=== PATIENT | female | born 1990 | race Caucasian/White ===

== ENCOUNTER 2018-04-26 19:17 | Emergency (ER) | payer MEDICAID, OTHER ==
[~2018-04-26] VITALS: Ht 165.1 cm; Wt 90.7 kg
[~2018-04-26 19:17] MED LIST: ACHD5005 PO; ACHYD1T PO; CLIN-62 PO; Ibuprofen PO; OMEP20TA2 PO; OSLT75CRX PO; PREN1TAB39 PO; SERT50TA PO
--- OUTSIDE RECORDS SUMMARY | 2018-04-26 19:22 | XMS REPORT | Continuity of Care Document ---
Demographics Preferred Language Unknown Marital Status Unknown Moravian Affiliation Unknown Race Unknown Ethnic Group Unknown Author Author [facility] Address Unknown Phone Unavailable Allergies Active Description Code Type Severity Reaction Onset Reported/Identified Relationship to Patient Clinical Status Yes No Known Drug Allergies [id number] Drug Allergy Unknown N/A 07/01/2010 Medications There is no data. 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 Results There is no data. Encounters ACCT No. Visit Date/Time Discharge Status Pt. Type Provider Facility Loc./Unit Complaint [id number] 02/13/2011 10:35:00 02/13/2011 23:59:59 CLS Outpatient [id number] 03/06/2014 11:48:13 ACT Document Registration [id number] 11/20/2016 12:50:00 11/20/2016 23:59:59 CLS Outpatient [facility] [id number] 03/06/2014 11:47:00 03/06/2014 14:30:00 DIS Emergency RAISA GARCÍA [facility] [id number] 08/05/2013 06:30:00 08/06/2013 15:15:00 DIS Inpatient [id number] 05/18/2013 14:13:00 05/18/2013 23:59:59 CLS Outpatient [id number] 05/16/2013 05:23:00 05/16/2013 07:11:00 DIS Emergency
[2018-04-26] MEDS ORDERED: HYDROcodone/APAP 5 MG/325 MG (LORTAB) TAB PO ONE (20:30)
--- NOTE | 2018-04-26 20:31 | ED Lower Extremity ---
General Chief Complaint: Lower Extremity Stated Complaint: FALL/L KNEE INJ Nursing Triage Note: PATIENT STATES THAT SHE WAS IN THE GARAGE TAKING LAUNDRY OUT AND HER LEFT KNEE "GAVE OUT" AND SHE FELL AGAINST THE CAR. SHE ALSO STATES THAT SHE HAD A PREVIOUS INJURY A CHILD ON THAT KNEE, BUT DENIES ANY SCOPES OR OTHER SURGERIES ON IT. ALSO STATES THAT HER RIGHT LOWER BACK IS SORE FROM HITTING AGAINST THE CAR IN THE GARAGE TO CATCH HERSELF. Nursing Sepsis Screen: No Definite Risk Source: patient Exam Limitations: no limitations History of Present Illness Date Seen by Provider: Apr 26, 2018 Time Seen by Provider: 20:28 Initial Comments To ER per private vehicle with reports of left anterior knee pain. She was taking laundry out into the garage when her left knee "gave out". She fell against the car but did not hit the ground. No history of prior injury or surgery to the knee. Onset: this evening Severity: moderate Pain/Injury Location: left knee Method of Injury: other (knee gave out) Modifying Factors: Worse With Movement Allergies and Home Medications Allergies Coded Allergies: No Known Drug Allergies (Unverified , 07/01/10) Home Medications Hydrocodone Bit/Acetaminophen 1 Ea Tab, 1-2 EA PO Q4H PRN for PAIN Prescribed by: AGUILAR FORD on 08/06/13 1321 Omeprazole 20 Mg Tablet.dr, 20 MG PO DAILY Prescribed by: ROBERT ENGLAND on 08/05/13 1048 Oseltamivir Phosphate 75 Mg Cap, 75 MG PO BID Prescribed by: RAISA SUTHERLAND on 03/06/14 1406 [Ibuprofen] 600 MG TAB, 600 MG PO Q6H Prescribed by: AGUILAR FORD on 08/06/13 1321 Patient Home Medication List Home Medication List Reviewed: Yes Review of Systems Constitutional: see HPI EENTM: see HPI Respiratory: no symptoms reported Cardiovascular: no symptoms reported Genitourinary: no symptoms reported Musculoskeletal: see HPI Skin: no symptoms reported Psychiatric/Neurological: No Symptoms Reported Past Theohss-Lchjup-Kgdsan Hx Patient Social History Recent Foreign Travel: No Contact w/Someone Who Travel: No Recent Infectious Disease Expo: No Immunizations Up To Date Tetanus Booster (TDap): Unknown PED Vaccines UTD: Yes Seasonal Allergies Seasonal Allergies: No Past Medical History Reproductive Disorders: No Sexually Transmitted Disease: No HIV/AIDS: No Fractures Anxiety, Depression Adverse Reaction/Blood Tranf: No Family Medical History Family history: Hypertension 19 MOTHER Physical Exam Vital Signs Vital Signs - First Documented 04/26/18 20:05 Temp 98.5 Pulse 74 Resp 16 B/P (MAP) 124/74 (91) Pulse Ox 99 O2 Delivery Room Air Capillary Refill : Less Than 3 Seconds Height, Weight, BMI Height: 5'5.00" Weight: 200lbs. oz. 90.795418on; BMI Method:Stated General Appearance: WD/WN, no apparent distress HEENT: PERRL/EOMI, normal ENT inspection Respiratory: no respiratory distress, no accessory muscle use Hips: bilateral hip non-tender, bilateral hip normal inspection, bilateral hip normal range of motion Legs: bilateral leg non-tender, bilateral leg normal inspection, bilateral leg normal range of motion Knees: left knee pain, left knee soft tissue tenderness Ankles: bilateral ankle non-tender, bilateral ankle normal inspection, bilateral ankle normal range of motion Feet: bilateral foot non-tender, bilateral foot normal inspection, bilateral foot normal range of motion Neurologic/Psychiatric: alert, normal mood/affect, oriented x 3 Skin: normal color, warm/dry Progress/Results/Core Measures Results/Orders My Orders Orders - PALAK PERLA APRN Knee, Left, 3 Views (04/26/18 20:25) Hydrocodone/Apap 5/325 Tablet (Lortab 5 (04/26/18 20:30) Vital Signs/I&O 04/26/18 20:05 Temp 98.5 Pulse 74 Resp 16 B/P (MAP) 124/74 (91) Pulse Ox 99 O2 Delivery Room Air Blood Pressure Mean: 91 Departure Impression Primary Impression: Internal derangement of left knee Disposition: 01 HOME, SELF-CARE Condition: Stable Departure-Patient Inst. Decision time for Depature: 20:30 Referrals: AGUILAR FORD MD (PCP/Family) Primary Care Physician Patient Instructions: Internal Derangement of the Knee Add. Discharge Instructions: 1. Knee immobilizer at all times when you're upright, follow-up with your regular doctor later this week. Pain persists or she may wish to order an MRI to further evaluate the meniscus and ligaments of the knee. All discharge instructions reviewed with patient and/or family. Voiced understanding. Work/School Note: Work Release Form Date Seen in the Emergency Department: Apr 26, 2018 Return to Work: Apr 28, 2018 PALAK PERLA APRN Apr 26, 2018 20:31
--- NOTE | 2018-04-26 20:52 | Diagnostic Imaging Report ---
INDICATION: Twisting injury with pain FINDINGS: No fracture, dislocation, or opaque loose body. The articular surface is smooth. The joint space is maintained. IMPRESSION: No acute appearing abnormality. Dictated by: Dictated on workstation # [id number]
[2018-04-26] MEDS ORDERED: RX-HYDROCODONE/APAP 5/325 MG #4 TAB PK PO PRN (21:00)
[2018-04-26 21:10] VITALS: BP 148/64
== END 2018-04-26 21:12 | disposition home or self-care (01) ==
LOC: EDUNIT# 19:17 → ER 19:18
DX: M23.91 Unspecified internal derangement of right knee (principal); F41.9 Anxiety disorder, unspecified; F32.9 Major depressive disorder, single episode, unspecified; W18.30XA Fall on same level, unspecified, initial encounter; Y92.59 Other trade areas as the place of occurrence of the external cause
CPT/HCPCS: 73562

== ENCOUNTER 2018-08-20 16:33 | Emergency (ER) | payer OTHER ==
[~2018-08-20] VITALS: Ht 165.1 cm; Wt 86.2 kg
--- NOTE | 2018-08-20 16:59 | ED Upper Extremity ---
General Chief Complaint: Upper Extremity Stated Complaint: LEFT WRIST INJ Nursing Triage Note: PT AMBULATES TO ER WITH COMPLAINTS OF LEFT WRIST PAIN. PT STATES THAT SHE WAS LIFTING A PALLET AT WORK AND STRAINED IT. 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 She had a sudden pain in the volar aspect radial side of the wrist. Onset: just prior to arrival Severity: moderate Pain/Injury Location: left wrist Method of Injury: unknown Modifying Factors: Worse With Movement Allergies and Home Medications Allergies Coded Allergies: No Known Drug Allergies (Unverified , 07/01/10) Home Medications Hydrocodone Bit/Acetaminophen 1 Ea Tab, 1-2 EA PO Q4H PRN for PAIN Prescribed by: AGUILAR FORD on 08/06/13 1321 Omeprazole 20 Mg Tablet.dr, 20 MG PO DAILY Prescribed by: ROBERT ENGLAND on 08/05/13 1048 Oseltamivir Phosphate 75 Mg Cap, 75 MG PO BID Prescribed by: RAISA SUTHERLAND on 03/06/14 1406 [Ibuprofen] 600 MG TAB, 600 MG PO Q6H Prescribed by: AGUILAR FORD on 08/06/13 1321 Patient Home Medication List Home Medication List Reviewed: Yes Review of Systems Constitutional: see HPI EENTM: see HPI Respiratory: no symptoms reported Cardiovascular: no symptoms reported Genitourinary: no symptoms reported Musculoskeletal: see HPI Skin: no symptoms reported Psychiatric/Neurological: No Symptoms Reported (no) Past Izyadqd-Typiqd-Ovgape Hx Patient Social History Recent Foreign Travel: No Contact w/Someone Who Travel: No Recent Infectious Disease Expo: No Recent Hopitalizations: No Immunizations Up To Date Tetanus Booster (TDap): Unknown PED Vaccines UTD: Yes Seasonal Allergies Seasonal Allergies: No Past Medical History Surgeries: No Respiratory: No Cardiac: No Neurological: No : No Reproductive Disorders: No Sexually Transmitted Disease: No HIV/AIDS: No Genitourinary: No Gastrointestinal: No Musculoskeletal: Yes (15 y/o) Fractures Endocrine: No HEENT: No Cancer: No Psychosocial: Yes Anxiety, Depression Integumentary: No Blood Disorders: No Adverse Reaction/Blood Tranf: No Family Medical History Family history: Hypertension 19 MOTHER Physical Exam Vital Signs Vital Signs - First Documented 08/20/18 16:40 Temp 98.9 Pulse 78 Resp 18 B/P (MAP) 137/93 (108) Pulse Ox 99 O2 Delivery Room Air Capillary Refill : Less Than 3 Seconds Height, Weight, BMI Height: 5'5.00" Weight: 190lbs. oz. 86.983975ik; BMI Method:Stated General Appearance: WD/WN, no apparent distress HEENT: PERRL/EOMI, normal ENT inspection Neck: non-tender, full range of motion Respiratory: no respiratory distress, no accessory muscle use Gastrointestinal: normal bowel sounds, soft Elbow/Forearm: normal inspection, non-tender Wrist: Yes normal inspection, Yes soft tissue tenderness (tenderness to the volar aspect over the flexor carpi radialis tendon with limited adduction of thumb against the little finger and flexion of the wrist as a hold due to pain. No paresthesias or tingling) Hand: normal inspection, non-tender Neurologic/Tendon: normal sensation, normal motor functions Neurologic/Psychiatric: alert, normal mood/affect, oriented x 3 Progress/Results/Core Measures Results/Orders Vital Signs/I&O 08/20/18 16:40 Temp 98.9 Pulse 78 Resp 18 B/P (MAP) 137/93 (108) Pulse Ox 99 O2 Delivery Room Air Blood Pressure Mean: 108 Departure Impression Primary Impression: flexor carpi radialis strain Disposition: 01 HOME, SELF-CARE Condition: Stable Departure-Patient Inst. Decision time for Depature: 16:58 Referrals: AGUILAR FORD MD (PCP/Family) Primary Care Physician Patient Instructions: Wrist Sprain (DC) Add. Discharge Instructions: 1. Wear the splint for the next 4 days, you may remove this on Friday if the pain is completely gone only. You may return to work full duty no restrictions on Friday only if the pain is completely gone. All discharge instructions reviewed with patient and/or family. Voiced understanding. PALAK PERLA APRN Aug 20, 2018 16:59
[2018-08-20 17:12] VITALS: BP 137/93
== END 2018-08-20 17:14 | disposition home or self-care (01) ==
LOC: EDUNIT# 16:33 → ER 16:34
DX: S56.212A Strain of other flexor muscle, fascia and tendon at forearm level, left arm, initial encounter (principal); F41.9 Anxiety disorder, unspecified; F32.9 Major depressive disorder, single episode, unspecified; Z82.49 Family history of ischemic heart disease and other diseases of the circulatory system; X50.0XXA Overexertion from strenuous movement or load, initial encounter; Y92.59 Other trade areas as the place of occurrence of the external cause; Y99.0 Civilian activity done for income or pay
CPT/HCPCS: 99282

== ENCOUNTER 2019-08-22 10:44 | Emergency (ER) | payer BC, OTHER ==
[~2019-08-22] VITALS: Ht 167 cm; Wt 100.0 kg
--- OUTSIDE RECORDS SUMMARY | 2019-08-22 10:49 | XMS REPORT ---
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 Name Role Phone AGUILAR FORD Unavailable AGUILAR FORD MD Unavailable Unavailable MARVIN DUARTE MD Unavailable Unavailable RAISA GARCÍA Unavailable Unavailable PALAK PERLA APRN Unavailable Unavailable AGUILAR FORD MD Unavailable Unavailable Unavailable Unavailable Allergies Normalized Allergy Reported Date of Reaction(s) Care Provider Facility Allergy Type classification allergen Allergy Onset DA (21 Unclassified No Known Drug 07-01-2010 - no information MARVIN Not Available sources.) Allergies MD FELICIA (15780) Medications Medication Ingredient Drug Dose Dates Status Sig Sig Care Class(es) (Normalized) (Original) Provid er no Acetaminoph no 05-17-19 Complete no Acetaminophe Timoth information en/Hydrocod information 14 - d information n/ Hydrocodon y D (1 source.) one Bitart 08-06-19 e Bitart Stebbi (Lortab 5 14 (Lortab 5 Mg ns (no Mg Tablet) Tablet) 1 phone) 1 Each Each Tablet, Tablet, 1-2 1-2 Each Each Oral Oral Every 6 Hours as needed for Pain 05/16/13 Discontinued no no 08-06-19 Complete no (no information Vits information 14 d information Vits phone) (1 source.) W-Ca,Fe,Fa( W-Ca,Fe,Fa( <1MG) Daily () Discontinued 1 Each Tablet, 1 Each Oral Problems Active Problems Problem Normalized Date Last Normalized Normalized Provider Fa cility Classification Problem(s) Recorded Problem Problem Sta tus Duration Anxiety Anxiety Chronic Active PALAK PERLA Not Availab le disorders (9 disorder, (30191) sources.) unspecified Malposition; Breech Episodic Active AGUILAR FORD , Not A vailable malpresentatio presentation (01264) n (4 sources.) without mention of version, antepartum condition or complication Skin and Cellulitis and Episodic Active MARVIN Not Dee ilable subcutaneous abscess of MD FELICIA (80402) tissue trunk infections (8 sources.) Other Encounter for Episodic Active AGUILAR FORD , Not Available screening for anatomic MD (56658) suspected survey conditions (not mental disorders or infectious disease) (4 sources.) Residual Family history Episodic Active PALAK PERLA [facility] V ia codes; of ischemic [facility] unclassified heart disease Hospital - (1 source.) and other [place] diseases of (72361) the circulatory system Adverse Fever, Episodic Active RAISA Not Available effects of unspecified JODY SUTHERLAND (28801) medical drugs (4 sources.) Immunizations Need for Episodic Active AGUILAR FORD , Not Available and screening prophylactic MD (77690) for infectious vaccination disease (4 and sources.) inoculation against diphtheria-tet anus-pertussis , combined [DTP] [DTaP] Other Normal Episodic Active AGUILAR FORD , Not Avai lable and delivery (33856) delivery Translations: including [ normal (8 DELIVER-SINGLE sources.) LIVEBORN, DELIVER-SINGLE LIVEBORN] Other Pain in left Episodic Active PALAK PERLA Not Dee ilable non-traumatic knee (92439) joint disorders (8 sources.) Other Pain in left Episodic Active PALAK PERLA [facility] Via non-traumatic wrist [facility] joint Hospital - disorders (1 [place] source.) (71240) Sprains and Strain of Episodic Active PALAK PERLA [facility] Via strains (1 other flexor [facility] source.) muscle, fascia Hospital - and tendon at [place] forearm level, (67507) left arm, initial encounter Joint Unspecified Chronic Active PALAK PERLA Not Avai lable disorders and internal (33967) dislocations; derangement of trauma-related right knee (8 sources.) Past or Other Problems Problem Normalized Date Last Normalized Normalized Provider Fa cility Classification Problem(s) Recorded Problem Problem Sta tus Duration External cause Civilian no information no information PALAK MADDEN [facility] Via codes: activity done [facility] Unspecified (1 for income or Hospital - source.) pay [place] (37748) External cause Fall on same no information no information PALAK PERLA Not Available codes: Fall (8 level, (79788) sources.) unspecified, initial encounter Mood disorders Major no information no information PALAK MADDEN Not Available (9 sources.) depressive (59931) disorder, single episode, unspecified External cause Other trade no information no information PALAK PERLA Not Available codes: Place areas as the (24756) of occurrence place of (9 sources.) occurrence of the external cause External cause Overexertion no information no information PALAK PERLA [facility] Via codes: from strenuous [facility] Natural/enviro movement or Hospital - nment (1 load, initial [place] source.) encounter (56445) Unclassified no information no information no information CLAUDIA FORD [place] Via (1 source.) [address] [facility] (05566) Procedures Procedure Normalized Procedure Procedure Result Performer Facility Date Other manually no information no name Not Available ( 93121) assisted delivery 04-26-2018 X-ray of left knee no information PALAK GRANADOS S [place] [facility] (01335) Immunizations Normalized Immunization Date Notes Care Provider Facili ty Immunization vaccine no information AGUILAR FORD [address] [place] [facility] Translations: [ [facility] vaccine] (31527) Results The data below is from unstructured sourcesNo known relevant diagnostic tests, laboratory data and/or discharge summary.No relevant diagnostic test, laboratory data and/or discharge summary information a vailable.No relevant diagnostic test, laboratory data and/or discharge summary i nformation available. Vital Signs The data below is from unstructured sources Vital Response Date/Time Temperature (Fahrenheit) 100.2 degre es F (97.6 - 99.5) Temperature (Calculated Celsius) 37. 15558 degrees C (36.4 - 37.5) Temperature Source Tympanic Pulse Rate (adult) 116 bpm (60 - 90) Respiratory Rate 20 bpm (12 - 24) O2 Sat by Pulse Oximetry 95 % (88 - 100) Pain Pain Intensity 0 Height (Feet) 5 feet Height (Inches) 5 inches Height (Calculated Centimeters) 165. 278097 cm Weight (Pounds) 190 pounds Weight (Calculated Kilograms) 86.182 551 kilograms Calculated BMI 31.61 Vital Response Date/Time Temperature (Fahrenheit) 98.5 degree s F (97.6 - 99.5) 04/26/2018 8:05pm Temperature (Calculated Celsius) 36. 74319 degrees C (36.4 - 37.5) 04/26/2018 8:05pm Temperature Source Oral 04/26/2018 8:05pm Pulse Rate (adult) 74 bpm (60 - 90) 04/26/2018 8:05pm Respiratory Rate 16 bpm (12 - 24) 04/26/2018 8:05pm O2 Sat by Pulse Oximetry 99 % (88 - 100) 04/26/2018 8:05pm Blood Pressure 124/74 mm Hg 04/26/2018 8:05pm Blood Pressure Mean 91 mm Hg (65 - 110) 04/26/2018 8:05pm Pain Numeric Pain Scale 7 8:31pm Height (Feet) 5 feet 04/2018 8:05pm Height (Inches) 5.00 inches 04/26/2018 8:05pm Height (Calculated Centimeters) 165. 492023 cm 04/26/2018 8:05pm Height Method Stated 04/2018 8:05pm Weight (Pounds) 200 pounds 04/26/2018 8:05pm Weight (Calculated Grams) 83393.48 gm 04/26/2018 8:05pm Weight (Calculated Kilograms) 90.718 475 kilograms 04/26/2018 8:05pm Weight Method Stated 04/2018 8:05pm Capillary Refill Capillary Refill Less Than 3 Seconds 04/26/2018 8:05pm Height 5 ft 5 in 019 8:05pm Weight 200 lb 04/26/2018 8:05pm Body Mass Index 33.3 kg/m^2 04/26/2018 8:05pm Vital Response Date/Time Temperature (Fahrenheit) 98.5 degree s F (97.6 - 99.5) 04/26/2018 8:05pm Temperature (Calculated Celsius) 36. 13172 degrees C (36.4 - 37.5) 04/26/2018 8:05pm Temperature Source Oral 04/26/2018 8:05pm Pulse Rate (adult) 74 bpm (60 - 90) 04/26/2018 8:05pm Respiratory Rate 16 bpm (12 - 24) 04/26/2018 8:05pm O2 Sat by Pulse Oximetry 99 % (88 - 100) 04/26/2018 8:05pm Blood Pressure 124/74 mm Hg 04/26/2018 8:05pm Blood Pressure Mean 91 mm Hg (65 - 110) 04/26/2018 8:05pm Pain Numeric Pain Scale 7 8:31pm Height (Feet) 5 feet 04/2018 8:05pm Height (Inches) 5.00 inches 04/26/2018 8:05pm Height (Calculated Centimeters) 165. 806589 cm 04/26/2018 8:05pm Height Method Stated 04/2018 8:05pm Weight (Pounds) 200 pounds 04/26/2018 8:05pm Weight (Calculated Grams) 12289.48 gm 04/26/2018 8:05pm Weight (Calculated Kilograms) 90.718 475 kilograms 04/26/2018 8:05pm Weight Method Stated 04/2018 8:05pm Capillary Refill Capillary Refill Less Than 3 Seconds 04/26/2018 8:05pm Height 5 ft 5 in 019 8:05pm Weight 200 lb 04/26/2018 8:05pm Body Mass Index 33.3 kg/m^2 04/26/2018 8:05pm Interventions No Information Plan of Treatment The data below is from unstructured sources Discharge Date 04/26/18 9:12pm Disposition 01 HOME, SELF-CARE Condition at Discharge Stable Instructions/Education Provided Inte rnal Derangement of the Knee Forms Provided Work Release Form Prescriptions See Medication Section Referrals AGUILAR FORD MD Order Date: Primary Care Physician Address: [address] [place] [address], [facility] [address] [place] [address] [phone] Additional Instructions/Education 1. Knee immobilizer at all times when you're upright, follow-up with your regular doctor later this week. Pain persists or she may wish to order an MRI to further evaluate the meniscus and ligaments of the knee. All discharge instructions reviewed with patient and/or family. Voiced understanding. Goals No Information Social History No Information Functional Status The data below is from unstructured sourcesNo functional status results.No functional status information available.No functional status information available. Mental Status No Information Encounters Encounter Normalized Encounter Encounter Diagnosis Care Provi jakob Organization Date Type 08-20-2018 Emergency department no information no name no organization name - patient visit 08-20-2018 04-26-2018 Emergency department no information PALAK Aguilar APRN [facility] no organization name - patient visit Work Phone: 04-26-2018 05-16-2013 Emergency department no information no name no organization name - patient visit 05-16-2013 08-05-2013 Evaluation and no information no name no organ ization name - management of 08-06-2013 inpatient 08-20-2018 Patient encounter no information no name no or ganization name procedure 04-26-2018 Patient encounter no information no name no or ganization name procedure 05-18-2013 Patient encounter no information no name no or ganization name procedure Medical Equipment No Information Payers No Information Advance Directives Directive Response Recor ded Date/Time Advance Directives No 12:53pm Health Care Power of Dry Cell And Battery Assembler No 03/06/14 12:53pm Organ Donor Yes 03/06/14 12:53pm Resuscitation Status Full Code 03/06/14 12:53pm Directive Response Recor ded Date/Time Advance Directives No 12:53pm Health Care Power of Dry Cell And Battery Assembler No 03/06/14 12:53pm Organ Donor Yes 03/06/14 12:53pm Discharge Instructions No hospital discharge instructions.No hospital discharge instruction information available. Chief Complaint and Reason for Visit Chief Complaint Lower Extremity Reason for Visit Internal derangemen t of left knee Additional Source Comments This clinical document has been generated using [employer] software that has been certified by the Office of the National Coordinator for Health Information Technology (ONC 15.99.04.3023.Diam.31.00.0.840414) and the National Committee for Recreation Superintendent (NCQA, as an eMeasure certified technology). FOR RECORDS PERTAINING TO PATIENTS WHO ARE OR HAVE BEEN ENROLLED IN A CHEMICAL D EPENDENCY/SUBSTANCE ABUSE PROGRAM, SOME INFORMATION MAY BE OMITTED. This clinica l summary was aggregated from multiple sources. Caution should be exercised in using it in the provision of clinical care. This summary normalizes information from multiple sources, and as a consequence, information in this document may ma terially change the coding, format and clinical context of patient data. In jodi tion, data may be omitted in some cases. CLINICAL DECISIONS SHOULD BE BASED ON T HE PRIMARY CLINICAL RECORDS. [employer] provides no warranty or guara ntee of the accuracy or completeness of information in this document.The followi ng information is based on time limited clinical information
--- OUTSIDE RECORDS SUMMARY | 2019-08-22 10:50 | XMS REPORT | Continuity of Care Document ---
Demographics Preferred Language Unknown Marital Status Unknown Zoroastrian Affiliation Unknown Race Unknown Ethnic Group Unknown Author Organization Unknown Address Unknown Phone Unavailable Allergies Active Description Code Type Severity Reaction Onset Reported/Identified Relationship to Patient Clinical Status Yes No Known Drug Allergies [id number] Drug Allergy Unknown N/A 07/01/2010 Medications There is no data. Problems Date Dx Coded Attending Type Code Diagnosis Diagnosed By 02/27/2010 V22.0 Preg ann, Normal First 03/21/2010 296.90 MOO D DISORDER 03/21/2010 V72.31 Case Manager Specialist Exam, Routine 03/21/2010 V74.5 Std Screen 07/11/2010 285.9 Anem ia Unspecified 08/08/[address] - Uti 08/23/2010 V25.49 NICOLE VEILLANCE OF OTHER CONTRACEPTIVE METHOD 11/14/2010 V24.2 ROUT INE FOLLOW-UP 05/16/2013 FELICIA RICHARD, MARVIN Mcginnis Ot 682.2 CELLULITIS OF TRUNK 08/06/2013 LILIANA RICHARD, AGUILAR Aguilar Ot 650 NORMAL DELIVERY 08/06/2013 AGUILAR FORD MD Ot V06. 1 [id number], COMBINED [ 08/06/2013 AGUILAR FORD MD Ot V27. 0 DELIVER-SINGLE LIVEBORN 03/06/2014 RAISA GARCÍA Ot 487.1 FLU W RESP MANIFEST NEC 03/06/2014 RAISA GARCÍA Ot 780.60 FEVER, UNSPECIFIED 04/26/2018 PALAK PERLA APRN Ot F32 .9 MAJOR DEPRESSIVE DISORDER, SINGLE EPISOD 04/26/2018 PALAK PERLA APRN Ot F41 .9 ANXIETY DISORDER, UNSPECIFIED 04/26/2018 PALAK PERLA APRN Ot M23.91 UNSPECIFIED INTERNAL DERANGEMENT OF RIGH 04/26/2018 PALAK PERLA APRN Ot M25.562 PAIN IN LEFT KNEE 04/26/2018 PALAK PERLA APRN Ot W18.30XA FALL ON SAME LEVEL, UNSPECIFIED, INITIAL 04/26/2018 PALAK PERLA APRN Ot Y92.[address] 04/26/2018 AGUILAR FORD MD Ot 652. 23 BREECH PRESENT-ANTEPART 04/26/2018 AGUILAR FORD MD Ot V28. 81 ENCOUNTER FOR ANATOMIC SURVEY 04/29/2018 PALAK PERAL APRN Ot F32 .9 MAJOR DEPRESSIVE DISORDER, SINGLE EPISOD 04/29/2018 PALAK PERLA APRN Ot F41 .9 ANXIETY DISORDER, UNSPECIFIED 04/29/2018 PALAK PERLA APRN Ot M23.91 UNSPECIFIED INTERNAL DERANGEMENT OF RIGH 04/29/2018 PALAK PERLA APRN Ot M25.562 PAIN IN LEFT KNEE 04/29/2018 PALAK PERLA APRN Ot W18.30XA FALL ON SAME LEVEL, UNSPECIFIED, INITIAL 04/29/2018 PALAK PERLA APRN Ot Y92.[address] 08/20/2018 AGUILAR FORD MD Ot 652. 23 BREECH PRESENT-ANTEPART 08/20/2018 AGUILAR FORD MD Ot V28. 81 ENCOUNTER FOR ANATOMIC SURVEY 08/20/2018 AGUILAR FORD MD Ot 652. 23 BREECH PRESENT-ANTEPART 08/20/2018 AGUILAR FORD MD Ot V28. 81 ENCOUNTER FOR ANATOMIC SURVEY 08/20/2018 AGUILAR FORD MD Ot 652. 23 BREECH PRESENT-ANTEPART 08/20/2018 AGUILAR FORD MD Ot V28. 81 ENCOUNTER FOR ANATOMIC SURVEY 08/22/2018 PALAK PERLA APRN Ot F32 .9 MAJOR DEPRESSIVE DISORDER, SINGLE EPISOD 08/22/2018 PALAK PERLA APRN Ot F41 .9 ANXIETY DISORDER, UNSPECIFIED 08/22/2018 PALAK PERLA APRN Ot M25.532 PAIN IN LEFT WRIST 08/22/2018 PALAK PERLA APRN Ot S56.212A STRAIN OF FLEXOR MUSC/FASC/TEND AT FORAR 08/22/2018 PALAK PERLA APRN Ot X50.0XXA OVEREXERTION FROM STRENUOUS MOVEMENT OR 08/22/2018 PALAK PERLA APRN Ot Y92.[address] 08/22/2018 PALAK PERLA APRN Ot Y99 .0 CIVILIAN ACTIVITY DONE FOR INCOME OR PAY 08/22/2018 PALAK PERLA ASSISTANT PASTRY CHEF Ot Z82.49 FAMILY HX OF ISCHEM HEART DIS AND OTH DI Procedures Code Description Performed By Per formed On 73.4 MEDIC AL INDUCTION LABOR 08/05/2013 73.59 MANU AL ASSIST DELIV NEC 08/05/2013 Results There is no data. Encounters ACCT No. Visit Date/Time Discharge Status Pt. Type Provider Facility Loc./Unit Complaint [id number] 02/13/2011 10:35:00 02/13/2011 23:59: 59 CLS Outpatient [id number] 08/12/2019 11:00:00 08/12/2019 23:59: 59 CLS Outpatient KITTY LAC, CHRIS [facility] [id number] 08/20/2018 16:34:00 019 17:14:00 DIS Outpatient PALAK PERLA APRN [facility] ER LEFT WRIST INJ [id number] 04/26/2018 19:18:00 019 21:12:00 DIS Emergency PALAK PERLA APRN [facility] ER FALL/L KNEE INJ [id number] 03/06/2014 11:47:00 015 14:30:00 DIS Emergency RAISA GARCÍA [facility] ER FEVER,COUGH [id number] 08/05/2013 06:30:00 014 15:15:00 DIS Inpatient AGUILAR FORD MD [facility] WS INDUCTION [id number] 05/18/2013 14:13:00 014 23:59:59 CLS Outpatient AGUILAR FORD MD [facility] RAD DATING [id number] 05/16/2013 05:23:00 014 07:11:00 DIS Emergency FELICIA RICHARD, MARVIN Mcginnis [facility] ER VAGINAL CYST [id number] 08/22/2019 10:45:[address] Emergency GARRETT RICHARD, IFTIKAHR Mo [facility] ER STOMACH PAIN
[2019-08-22] MEDS ORDERED: ONDANSETRON 4 MG (ZOFRAN) ORAL DISSOLVE TAB SL STA (11:11)
[2019-08-22] MEDS ORDERED: ANTACID SUSP 30 ML UDC (MYLANTA) PO ONE (11:15)
[2019-08-22] MEDS ORDERED: LIDOCAINE 2% VISCOUS 15 ML UDC PO ONE (11:15)
--- NOTE | 2019-08-22 11:17 | ED Abdominal Pain ---
General Chief Complaint: Abdominal/GI Problems Stated Complaint: STOMACH PAIN Source of Information: Patient Exam Limitations: No Limitations (RITO VAZQUEZ,) History of Present Illness Date Seen by Provider: Aug 22, 2019 Time Seen by Provider: 10:45 Initial Comments Ms. Acevedo is here for abdominal pain that has lasted 4 days. She also notes difficulty passing bowel movements since the beginning of this pain. She rates it a 9/10 and states it is very uncomfortable and has difficulty moving. She admits to nausea, but no vomiting, no diarrhea, but has had constipation. She localizes it to right below her ribs in the epigastric area. She tried alisha chews and Gas-X to help, but they did not. Nothing improves her pain. She has noticed pain when eating, but she denies any loss of appetite. Pt has been drinking more water. She has an increase in urination but could not evaluate if she has increased urgency and frequency. Pt also denies dysuria or hematuria. LMP started , she denies any new sexual partners or change in discharge. Timing/Duration: 4-5 Days Severity/Quality: Severe Location: Epigastric, Generalized Abdomen Radiation: No Radiation Modifying Factors: Worsens With Antacids, Worsens With Lying down, Worsens With Movement Associated Symptoms: Nausea/Vomiting (RITO VAZQUEZ,) Allergies and Home Medications Allergies Coded Allergies: No Known Drug Allergies (Unverified , 07/01/10) Home Medications Hydrocodone Bit/Acetaminophen 1 Ea Tab, 1-2 EA PO Q4H PRN for PAIN Prescribed by: AGUILAR FORD on 08/06/13 1321 Omeprazole 20 Mg Tablet.dr, 20 MG PO DAILY Prescribed by: ROBERT ENGLAND on 08/05/13 1048 Oseltamivir Phosphate 75 Mg Cap, 75 MG PO BID Prescribed by: RAISA SUTHERLAND on 03/06/14 1406 [Ibuprofen] 600 MG TAB, 600 MG PO Q6H Prescribed by: AGUILAR FORD on 08/06/13 1321 Patient Home Medication List Home Medication List Reviewed: Yes (RITO VAZQUEZ,) Review of Systems Review of Systems Constitutional: no symptoms reported EENTM: No Symptoms Reported Respiratory: No Symptoms Reported Cardiovascular: No Symptoms Reported Gastrointestinal: Abdominal Pain, Constipated; Denies Diarrhea; Nausea; Denies Poor Appetite, Denies Vomiting Genitourinary: Denies Burning, Denies Frequency, Denies Hematuria, Denies Urgency Musculoskeletal: no symptoms reported Skin: no symptoms reported Psychiatric/Neurological: No Symptoms Reported Endocrine: No Symptoms Reported Hematologic/Lymphatic: No Symptoms Reported (RITO VAZQUEZ,) Past Leczjka-Rmdqyq-Jjuiic Hx Past Med/Social Hx: Reviewed Nursing Past Med/Soc Hx (IFTIKHAR TUKCER MD) Patient Social History Alcohol Use: Occasionally Uses Recreational Drug Use: No 2nd Hand Smoke Exposure: No Recent Foreign Travel: No Contact w/Someone Who Travel: No Recent Hopitalizations: No (RITO VAZQUEZ,) Immunizations Up To Date Tetanus Booster (TDap): Unknown PED Vaccines UTD: Yes (RITO VAZQUEZ) Seasonal Allergies Seasonal Allergies: No (RITO VAZQUEZ,) Past Medical History Surgeries: No Respiratory: No Cardiac: No Neurological: No : No Last Menstrual Period: Aug 19, 2019 Reproductive Disorders: No Sexually Transmitted Disease: No HIV/AIDS: No Genitourinary: No Gastrointestinal: No Musculoskeletal: Yes (15 y/o) Fractures Endocrine: No HEENT: No Cancer: No Psychosocial: Yes Anxiety, Depression Integumentary: No Blood Disorders: No Adverse Reaction/Blood Tranf: No (RITO VAZQUEZ,) Family Medical History Family history: Hypertension 19 MOTHER Physical Exam Vital Signs Vital Signs - First Documented 08/22/19 12:36 Temp 36.4 Pulse 80 Resp 14 B/P (MAP) 113/77 (89) Pulse Ox 99 O2 Delivery Room Air (IFTIKHAR TUCKER MD) Vital Signs Capillary Refill : (RITO VAZQUEZ,) Height/Weight/BMI Height: 5'5.00" Weight: 190lbs. oz. 86.761142ni; BMI Method:Stated General Appearance: WD/WN, mild distress HEENT: PERRL/EOMI Respiratory: lungs clear, normal breath sounds Cardiovascular: regular rate, rhythm, no murmur Gastrointestinal: normal bowel sounds, soft, tenderness (deep palpation in RUQ and epigastrum), other (positive Delgado's sign) Extremities: normal range of motion, normal inspection Neurologic/Psychiatric: alert, oriented x 3 Skin: normal color, warm/dry (RITO VAZQUEZ,) Progress/Results/Core Measures Results/Orders Lab Results Laboratory Tests Test 08/22/19 12:27 08/22/19 13:00 Range/Units White Blood Count 7.7 4.3-11.0 10^3/uL Red Blood Count 5.01 4.35-5.85 10^6/uL Hemoglobin 14.9 11.5-16.0 G/DL Hematocrit 45 35-52 % Mean Corpuscular Volume 89 80-99 FL Mean Corpuscular Hemoglobin 30 25-34 PG Mean Corpuscular Hemoglobin Concent 33 32-36 G/DL Red Cell Distribution Width 13.2 10.0-14.5 % Platelet Count 230 130-400 10^3/uL Mean Platelet Volume 11.3 H 7.4-10.4 FL Neutrophils (%) (Auto) 69 42-75 % Lymphocytes (%) (Auto) 22 12-44 % Monocytes (%) (Auto) 5 0-12 % Eosinophils (%) (Auto) 3 0-10 % Basophils (%) (Auto) 0 0-10 % Neutrophils # (Auto) 5.3 1.8-7.8 X 10^3 Lymphocytes # (Auto) 1.7 1.0-4.0 X 10^3 Monocytes # (Auto) 0.4 0.0-1.0 X 10^3 Eosinophils # (Auto) 0.3 0.0-0.3 10^3/uL Basophils # (Auto) 0.0 0.0-0.1 10^3/uL Sodium Level 137 135-145 MMOL/L Potassium Level 4.2 3.6-5.0 MMOL/L Chloride Level 105 98-107 MMOL/L Carbon Dioxide Level 22 21-32 MMOL/L Anion Gap 10 5-14 MMOL/L Blood Urea Nitrogen 6 L 7-18 MG/DL Creatinine 0.77 0.60-1.30 MG/DL Estimat Glomerular Filtration Rate > 60 BUN/Creatinine Ratio 8 Glucose Level 98 70-105 MG/DL Calcium Level 9.6 8.5-10.1 MG/DL Corrected Calcium 9.3 8.5-10.1 MG/DL Total Bilirubin 0.4 0.1-1.0 MG/DL Aspartate Amino Transf (AST/SGOT) 13 5-34 U/L Alanine Aminotransferase (ALT/SGPT) 14 0-55 U/L Alkaline Phosphatase 85 40-136 U/L Total Protein 7.4 6.4-8.2 GM/DL Albumin 4.4 3.2-4.5 GM/DL Lipase 17 8-78 U/L Serum Test, Qualitative NEGATIVE NEGATIVE Urine Color YELLOW Urine Clarity CLEAR Urine pH 7.5 5-9 Urine Specific [place] 1.010 L 1.016-1.022 Urine Protein NEGATIVE NEGATIVE Urine Glucose (UA) NEGATIVE NEGATIVE Urine Ketones NEGATIVE NEGATIVE Urine Nitrite NEGATIVE NEGATIVE Urine Bilirubin NEGATIVE NEGATIVE Urine Urobilinogen 0.2 < = 1.0 MG/DL Urine Leukocyte Esterase NEGATIVE NEGATIVE Urine RBC (Auto) TRACE-I NEGATIVE Urine RBC RARE /HPF Urine WBC RARE /HPF Urine Squamous Epithelial Cells 0-2 /HPF Urine Crystals NONE /LPF Urine Bacteria NEGATIVE /HPF Urine Casts NONE /LPF Urine Mucus NEGATIVE /LPF Urine Culture Indicated NO (IFTIKHAR TUCKER MD) My Orders Orders - IFTIKHAR TUCKER MD Ondansetron Oral Dissolve Tab (Zofran (08/22/19 11:11) Lidocaine 2% Viscous 15 Ml (Xylocaine Vi (08/22/19 11:15) Antacid Suspension (Mylanta Suspension (08/22/19 11:15) Cbc With Automated Diff (08/22/19 12:36) Comprehensive Metabolic Panel (08/22/19 12:36) Hcg,Qualitative Serum (08/22/19 12:36) Lipase (08/22/19 12:36) Fentanyl Injection (Sublimaze Injection (08/22/19 12:45) Ed Iv/Invasive Line Start (08/22/19 12:36) Ua Culture If Indicated (08/22/19 12:42) Abdomen, Flat & Upright/Decub (08/22/19 14:11) Ketorolac Injection (Toradol Injection) (08/22/19 14:15) (IFTIKHAR TUCKER MD) Medications Given in ED (IFTIKHAR TUCKER MD) Vital Signs/I&O 08/22/19 08/22/19 12:36 15:41 Temp 36.4 Pulse 80 78 Resp 14 14 B/P (MAP) 113/77 (89) 128/94 Pulse Ox 99 98 O2 Delivery Room Air Room Air (IFTIKHAR TUCKER MD) Progress Progress Note : Progress Note Patient was initially treated with a GI cocktail which did not improve her symptoms. Fentanyl was later used to for pain. Labs were assessed and were unremarkable. We discussed further options including CT versus ultrasound imaging. Ultrasound is not available today but could be ordered as an outpatient in the morning. Abdominal x-ray was obtained and did suggest some constipation. We discussed treatment for this. Patient elects to pursue ultrasound as an outpatient in the morning. Return precautions were reviewed. Outpatient order form was provided. (IFTIKHAR TUCKER MD) Diagnostic Imaging Diagonstic Imaging: Xray Plain Films/CT/US/NM/MRI: abdomen, pelvis Comments KUB and upright x-rays viewed by me and report reviewed. See report below: NAME: LORELEI ACEVEDO [facility] REC#: [id number] PT STATUS: REG ER : 1990 PHYSICIAN: IFTIKHAR TUCKER MD ADMIT DATE: 08/22/19/ER Signed Date of Exam:08/22/19 ABDOMEN, FLAT & UPRIGHT/DECUB INDICATION: Abdominal pain, nausea. COMPARISON: None. EXAMINATION: KUB and upright views of the abdomen were obtained. FINDINGS: Mild constipation without obstruction, ileus or free air. Thoracolumbar scoliosis is present. IMPRESSION: Mild constipation. Dictated by: Dictated on workstation # [id number] Dict: 08/22/19 1437 Trans: 08/22/19 1444 [facility] [id number] Interpreted by: AGUILAR CHATTERJEE Electronically signed by: AGUILAR CHATTERJEE 08/22/19 1444 (FITIKHAR TUCKER MD) Departure Impression Primary Impression: Epigastric pain Additional Impression: Constipation Qualified Codes: K59.00 - Constipation, unspecified Disposition: HOME, SELF-CARE Condition: Improved Departure-Patient Inst. Decision time for Depature: 15:15 (IFTIKHAR TUCKER MD) Referrals: AGUILAR FORD MD (PCP/Family) Primary Care Physician Patient Instructions: Acute Abdomen (Belly Pain), Adult (DC), Constipation, Adult (DC) Add. Discharge Instructions: Observe a clear liquid diet until 1:30 a.m. Then do not eat or drink anything after 1:30 a.m. Present to the hospital at in the morning at 7:30 a.m. for your ultrasound. Bring your order form with you. You may take ibuprofen up to 600 mg every 6 hours as needed and Tylenol (acetaminophen) up to 1000 mg every 6 hours as needed for pain. For constipation you use MiraLAX or generic polyethylene glycol one capful dissolved in 8-12 ounces of clear liquid twice daily as needed until some good bowel movements are produced. Return to care if you have worsening symptoms despite following these instructions. Follow-up with your primary care provider soon as possible. All discharge instructions reviewed with patient and/or family. Voiced understanding. I have personally interviewed, seen and examined this patient along with Rito Vazquez, MS 4. I agree with MS 4 history, physical, assessment, and documentation except for otherwise noted. This patient presents with complaints of epigastric pain. Pain did not improve with GI cocktail. Workup was unremarkable. After discussion with patient she elects to pursue further workup with outpatient ultrasound. Exam: Gen.: Alert, oriented, mild distress and tearful HEENT: Normocephalic and atraumatic, mucous membranes moist Heart: Regular rate and rhythm without murmur Lungs: Clear to auscultation bilaterally with abdominal effort Abdomen: soft, nondistended, tenderness in the epigastrium and right upper quadrant, normal bowel sounds Extremities: Normal to inspection Neuro psych: Patient seems mildly anxious and tearful. Otherwise mood, affect, and neurologic findings grossly normal (IFTIKHAR TUCKER MD) Copy Copies To 1: AGUILAR FORD MD, LAUREN, Aug 22, 2019 11:17 IFTIKHAR TUCKER MD Aug 22, 2019 15:34
[2019-08-22 12:44] LABS: BASOPHILS % (AUTO) 0 % (0-10); EOSINOPHILS # (AUTO) 0.3 10^3/uL (0.0-0.3); EOSINOPHILS % (AUTO) 3 % (0-10); HEMATOCRIT 45 % (35-52); HEMOGLOBIN 14.9 G/DL (11.5-16.0); LYMPHOCYTES # (AUTO) 1.7 X 10^3 (1.0-4.0); LYMPHOCYTES % (AUTO) 22 % (12-44); MEAN CORPUSCULAR HEMOGLOBIN 30 PG (25-34); MEAN CORPUSCULAR HGB CONC 33 G/DL (32-36); MEAN CORPUSCULAR VOLUME 89 FL (80-99); MEAN PLATELET VOLUME 11.3 FL (7.4-10.4); MONOCYTES # (AUTO) 0.4 X 10^3 (0.0-1.0); MONOCYTES % (AUTO) 5 % (0-12); NEUTROPHILS # (AUTO) 5.3 X 10^3 (1.8-7.8); NEUTROPHILS % (AUTO) 69 % (42-75); PLATELET COUNT 230 10^3/uL (130-400); RED CELL DISTRIBUTION WIDTH 13.2 % (10.0-14.5); WHITE BLOOD COUNT 7.7 10^3/uL (4.3-11.0)
[2019-08-22] MEDS ORDERED: fentaNYL INJECTION 100 MCG/2 ML AMP IVP ONE (12:45)
[2019-08-22 12:48] LABS: ALBUMIN 4.4 GM/DL (3.2-4.5)
[2019-08-22 12:49] LABS: CHLORIDE 105 MMOL/L (98-107); POTASSIUM 4.2 MMOL/L (3.6-5.0); SODIUM 137 MMOL/L (135-145)
[2019-08-22 12:50] LABS: CALCIUM 9.6 MG/DL (8.5-10.1)
[2019-08-22 12:51] LABS: GLUCOSE 98 MG/DL (70-105); TOTAL PROTEIN 7.4 GM/DL (6.4-8.2)
[2019-08-22 12:52] LABS: CARBON DIOXIDE 22 MMOL/L (21-32)
[2019-08-22 12:53] LABS: BILIRUBIN,TOTAL 0.4 MG/DL (0.1-1.0)
[2019-08-22 12:54] LABS: ALKALINE PHOSPHATASE 85 U/L (40-136)
[2019-08-22 12:55] LABS: CREATININE SERUM 0.77 MG/DL (0.60-1.30); GFR ESTIMATED > 60
[2019-08-22 12:56] LABS: BUN/CREATININE RATIO 8
[2019-08-22 12:58] LABS: ALANINE AMINOTRANSFERASE 14 U/L (0-55); LIPASE 17 U/L (8-78)
[2019-08-22 13:08] LABS: BILIRUBIN,URINE NEGATIVE (NEGATIVE); CLARITY,URINE CLEAR; COLOR,URINE YELLOW; GLUCOSE, URINE (UA) NEGATIVE (NEGATIVE); KETONES,URINE NEGATIVE (NEGATIVE); LEUKOCYTE ESTERASE ,URINE NEGATIVE (NEGATIVE); NITRITE,URINE NEGATIVE (NEGATIVE); PH,URINE 7.5 (5-9); PROTEIN,URINE NEGATIVE (NEGATIVE)
[2019-08-22 13:16] LABS: BACTERIA,URINE NEGATIVE /HPF; RBC,URINE RARE /HPF; SQUAMOUS EPITHELIAL CELL,UR 0-2 /HPF; WBC,URINE RARE /HPF
[2019-08-22] MEDS ORDERED: KETOROLAC 30 MG/ML VIAL IVP ONE (14:15)
--- NOTE | 2019-08-22 14:45 | Diagnostic Imaging Report ---
INDICATION: Abdominal pain, nausea. COMPARISON: None. EXAMINATION: KUB and upright views of the abdomen were obtained. FINDINGS: Mild constipation without obstruction, ileus or free air. Thoracolumbar scoliosis is present. IMPRESSION: Mild constipation. Dictated by: Dictated on workstation # [id number]
[2019-08-22 15:41] VITALS: BP 128/94
== END 2019-08-22 15:59 | disposition home or self-care (01) ==
LOC: EDUNIT# 10:44 → ER 10:45
DX: K59.00 Constipation, unspecified (principal); Z82.49 Family history of ischemic heart disease and other diseases of the circulatory system
CPT/HCPCS: 36415; 74019; 80053; 81000; 83690; 84703; 85025

== ENCOUNTER → 2019-08-23 | Outpatient (CLI) | payer BC ==
--- NOTE | 2019-08-23 09:25 | Diagnostic Imaging Report ---
PROCEDURE: US Gallbladder. TECHNIQUE: Multiple real-time grayscale images were obtained over the right upper quadrant in various projections. INDICATION: Epigastric pain FINDINGS: Grayscale imaging of the gallbladder reveals no intraluminal filling defect. There is no gallbladder wall thickening or pericholecystic fluid. No intra or extrahepatic biliary ductal dilatation is identified. Pancreas is largely obscured by overlying bowel. No abdominal aortic or inferior vena caval abnormality is identified and there is no evidence of free fluid. There is an approximately 2.7 x 2.7 x 3.2 cm hypoechoic nodule projecting from the inferior pole of the right kidney. IMPRESSION: Probable 3.2 x 2.7 cm right renal cyst. Unremarkable gallbladder ultrasound. Dictated by: Dictated on workstation # [id number]
== END ==
LOC: RAD 07:04
PROVIDERS: ATTEND Family Medicine
DX: N28.1 Cyst of kidney, acquired (principal)
CPT/HCPCS: 76705

== ENCOUNTER → 2019-09-03 | Outpatient (CLI) | payer BC ==
[~2019-09-03] MED LIST changes: +CATHETER FLUSH 10 ML SYR IV PRN
--- NOTE | 2019-09-03 11:35 | Diagnostic Imaging Report ---
CLINICAL INDICATION: Patient right upper quadrant abdominal pain. COMPARISON: Right upper ultrasound dated 08/23/2019. PROCEDURE: The patient was administered 5.08 millicuries of technetium 99m Choletec. After 60 minutes of the images, one can of Ensure was drink followed by another 60 minutes of imaging. A nuclear medicine hepatobiliary scan with ejection fraction was performed. FINDINGS: There is prompt uptake and excretion of radiotracer by the liver. Activity is visible in the gallbladder by 20 minutes and the small bowel by 45 minutes. Ejection fraction of the gallbladder is calculated at 43% (normal >33%). The gallbladder visibly empties on the scans following the ingestion of Ensure. IMPRESSION: Normal hepatobiliary scan with normal gallbladder ejection fraction. There is no scintigraphic evidence of significant cystic duct or common duct obstruction. Dictated by: Dictated on workstation # [id number]
== END ==
LOC: CARD 08:56
PROVIDERS: ATTEND Family Medicine
DX: R10.11 Right upper quadrant pain (principal)
CPT/HCPCS: 78227; A9537

== ENCOUNTER 2020-01-06 05:37 | Outpatient (RCR) | payer BC ==
[~2020-01-06] VITALS: Ht 167.7 cm; Wt 115.0 kg
[~2020-01-06 05:37] MED LIST changes: -CATHETER FLUSH 10 ML SYR IV PRN
== END 2020-01-07 10:22 | disposition home or self-care (01) ==
LOC: PREOP 05:37
PROVIDERS: ATTEND Surgery
DX: Z01.812 Encounter for preprocedural laboratory examination (principal); K21.9 Gastro-esophageal reflux disease without esophagitis; Z20.828 Contact with and (suspected) exposure to other viral communicable diseases
CPT/HCPCS: 87635

== ENCOUNTER 2020-01-10 08:26 | Day surgery (SDC) | payer BC ==
[2020-01-10] VITALS (8 sets, daily range): BP systolic 90–119; BP diastolic 53–75
[~2020-01-10] VITALS: Ht 167.7 cm; Wt 115.0 kg
[2020-01-10] MEDS ORDERED: LACTATED RINGERS 1,000 ML IV ONE (08:29)
[2020-01-10] MEDS ORDERED: LACTATED RINGERS 1,000 ML IV STA (08:33)
[2020-01-10] MEDS ORDERED: HURRICAINE EXT TUBE (BENZOCAINE) XX PRN (08:45)
[2020-01-10] MEDS ORDERED: HURRICAINE EXT TUBE (BENZOCAINE) ONE (09:04)
[2020-01-10] MEDS ORDERED: PROPOFOL INJECTION 50 ML IV ONE ×2 (09:10→09:31)
[2020-01-10] MEDS ORDERED: MIDAZOLAM 5 MG/5 ML (VERSED) VIAL ONE (09:10)
--- NOTE | 2020-01-10 09:11 | Progress Note-Pre Operative ---
Pre-Operative Progress Note H&P Reviewed The H&P was reviewed, patient examined and no changes noted. Time Seen by Provider: 08:38 Date H&P Reviewed: Jan 10, 2020 Time H&P Reviewed: 08:39 Pre-Operative Diagnosis: GERD, Constipation, change in bowel habits?, bleeding? JANUSZ GARVEY DO Jan 10, 2020 09:11
--- NOTE | 2020-01-10 10:28 | Anesthesia-General Post-Op ---
MAC Patient Condition Mental Status/LOC: Same as Preop Cardiovascular: Satisfactory Nausea/Vomiting: Absent Respiratory: Satisfactory Pain: Controlled Complications: Absent Post Op Complications Complications None Follow Up Care/Instructions Patient Instructions None needed. Anesthesiology Discharge Order Discharge Order Patient is doing well, no complaints, stable vital signs, no apparent adverse anesthesia problems. No complications reported per nursing. DAKSHA CONRAD CRNA Jan 10, 2020 10:28
--- NOTE | 2020-01-10 10:59 | Progress Note-Post Operative ---
Post-Operative Progess Note Surgeon (s)/Perforator (s) Surgeon JANUSZ GARVEY DO Perforator: MARIE Muniz Pre-Operative Diagnosis GERD, Constipation, change in bowel habits?, bleeding? Post-Operative Diagnosis Gastritis Esophagitis polyps int hemorrhoids Procedure & Operative Findings Date of Procedure 01/10/20 Procedure Performed/Findings EGD with bx Colon with snare Anesthesia Type IV sedation by FAMILY INDEPENDENCE CASE MANAGER Estimated Blood Loss Estimated blood loss (mL): scant Specimens/Packing Specimens Removed Antral bx body of stomach bx GE jxn bx Esophagus bx Descending colon polyp Sigmoid polyp x 2 rectal polyp JANUSZ GARVEY DO Jan 10, 2020 10:59
--- NOTE | 2020-01-10 11:00 | Endoscopy Discharge Instruct ---
Endo Procedure/Findings Findings 1.: Gastritis 2.: Polyp 3.: Internal Hemorrhoids Discharge Instructions - Activity: You might feel a little sleepy until tomorrow. This is due to the medicine you received to relax you. Until tomorrow, you should: NOT drive a car, operate machinery or power tools. NOT drink any alcoholic beverages. NOT make any important decisions or sign importortant papers. Do not return to work until tomorrow, unless otherwise instructed. Resume previous activities tomorrow. Diet: Start by taking liquids. If you tolerate liquids, advance to solid food. 1.: Colonscopy in 3 years, EGD in 3 years Notify Physician - If you experience excessive bleeding, unusual abdominal pain, fever, or chest pain, contact your doctor immediately. JANUSZ GARVEY DO Jan 10, 2020 11:00
--- NOTE | 2020-01-10 23:55 | OPERATIVE REPORT ---
DATE OF SERVICE: PREOPERATIVE DIAGNOSES: Gastroesophageal reflux disease, constipation, questionable change in bowel habits, questionable rectal bleeding. POSTOPERATIVE DIAGNOSES: 1. Gastritis. 2. Esophagitis. 3. Colon polyps. 4. Internal hemorrhoids. PROCEDURES: 1. EGD with biopsy. 2. Colonoscopy with snare polypectomy. SURGEON: Robert Chery DO NUT GRADER: Daniel Mehta, MS3 ANESTHESIA: IV sedation by the INJECTION MOLDING OPERATOR. SPECIMEN: 1. Biopsy from the antrum, biopsy from body of stomach and biopsy from the GE junction and biopsy from the esophagus. 2. Descending colon polyp, sigmoid polyp x2 and a rectal polyp. BLOOD LOSS: Scant. FLUIDS: Per anesthesia. POSTOPERATIVE CONDITION: Stable. INDICATION FOR PROCEDURE: The patient is a 21-year-old female who has been having some GERD. She has got constipation, questionable change in bowel habits and she thinks she saw some dark blood when she wiped one time. FINDINGS: The patient had gastritis, esophagitis and looked like little nodules in her esophagus. Biopsy was taken. She also had multiple polyps in the descending, sigmoid and rectum as well as some internal hemorrhoids. PROCEDURE NOTE: After informed consent was obtained, the patient was brought to the endoscopy suite, placed in bed in left lateral decubitus position. She was administered IV sedation by the INJECTION MOLDING OPERATOR who then monitored her vitals the entire time, heart rate, blood pressure and pulse ox and the scope was inserted, started with the EGD, placing scope down the mouth through the esophagus and stomach. On the way down to the esophagus noted some little bumps in the esophagus, took a picture of this and then at the GE junction saw some creeping up of the Z line, this looked like esophagitis. Pushed in, able to get into the duodenum. Duodenum looked fine. Pulled back and did a biopsy of the antrum, then did a biopsy of body of stomach, retroflexed. I did not see any hiatal hernia. Pulled the scope into the GE junction, did a biopsy of the GE junction and then pushed the scope into the stomach and suctioned all the air out of stomach and then on the way up, I elected to try and get a biopsy of the small little bumps in the esophagus. I then pulled the scope all the way out. Switched camera, switched gloves, went down below, started the colonoscopy. On the way in, noted a large polyp in the descending colon, elected to do snare polypectomy of this and then continued up to about 150 cm and to the cecum, took a picture of appendiceal orifice and then able to get into terminal ileum and took a picture and then slowly withdrew the scope insufflating the circumferential brand looking the cecum, up the ascending colon to the hepatic flexure, then down the transverse colon and splenic flexure, into the descending colon and then in the sigmoid colon, saw another 2 polyps, able to snare these as well and then saw another one in the rectum and did a snare polypectomy of this one as well. Retroflexed the scope in the rectal vault, saw some internal hemorrhoids, took a picture and then removed the scope. The patient tolerated the procedure. She was recovered in endoscopy suite. Job ID: [id number] DocumentID: [id number] Dictated Date: 01/10/2020 14:10:58 Supply Chain Engineer Date: 01/10/2020 23:55:19 Dictated By: ROBERT CHERY DO
== END 2020-01-10 11:25 | disposition home or self-care (01) ==
LOC: ENDO 08:26
PROVIDERS: ATTEND Surgery
DX: K21.00 Gastro-esophageal reflux disease with esophagitis, without bleeding (principal); K31.89 Other diseases of stomach and duodenum; D12.5 Benign neoplasm of sigmoid colon; K63.5 Polyp of colon; K51.40 Inflammatory polyps of colon without complications; K64.8 Other hemorrhoids; K29.70 Gastritis, unspecified, without bleeding; F41.9 Anxiety disorder, unspecified; F32.9 Major depressive disorder, single episode, unspecified; K21.9 Gastro-esophageal reflux disease without esophagitis; E66.01 Morbid (severe) obesity due to excess calories; Z68.41 Body mass index [BMI] 40.0-44.9, adult; Z79.899 Other long term (current) drug therapy; K82.8 Other specified diseases of gallbladder; Z83.3 Family history of diabetes mellitus
CPT/HCPCS: 88305

== ENCOUNTER → 2020-03-06 | Outpatient (CLI) | payer BC ==
[~2020-03-06] MED LIST changes: +CATHETER FLUSH 10 ML SYR IV PRN
--- NOTE | 2020-03-06 12:15 | Diagnostic Imaging Report ---
EXAMINATION: Nuclear Medicine hepatobiliary scan. INDICATION: Abdominal pain. TECHNIQUE: This study was performed following the administration of 5.47 mCi of 99M technetium Choletec. One can of Ensure was also used for calculation of the ejection fraction. FINDINGS: The prior hepatobiliary scan of 09/03/2019 failed to show any evidence for acute cholecystitis or for obstruction of the common bile duct. The ejection fraction was 43%. On this study, there is again uptake of the radiotracer by the gallbladder before 30 minutes. This would weight against a diagnosis of acute cholecystitis. There is extension of the radiotracer into the small bowel indicating that the common bile duct is not obstructed. The ejection fraction is 44.3% and virtually unchanged when compared to the prior exam (normal ejection fraction greater than 35%). IMPRESSION: 1. There is still no evidence for acute cholecystitis or for obstruction of the common bile duct. 2. The ejection fraction is also virtually no different than on the prior exam at 44%. Dictated by: Dictated on workstation # [id number]
== END ==
LOC: CARD 10:00
PROVIDERS: ATTEND Surgery
DX: R10.11 Right upper quadrant pain (principal)
CPT/HCPCS: 78227; A9537